=== PATIENT | male | born 1975 | race Caucasian/White ===

== ENCOUNTER 2021-05-09 23:04 | Emergency (ER) | payer SELFPAY ==
--- NOTE | ~2021-05-09 | XR_ITS ---
EXAMINATION: XR chest 1V portable DATE: 05/10/2021 00:43 INDICATION: Cough TECHNIQUE: frontal view of the chest was obtained. COMPARISON: None FINDINGS: The lungs are clear with no focal airspace opacities, pulmonary edema, pleural effusion or pneumothor ax. The cardiomediastinal silhouette is normal. Visualized bones and soft tissues are unremarkable. IMPRESSION: 1. No acute cardiopulmonary disease. Reviewed, dictated and finalized at location A.
[2021-05-09 23:06] VITALS: BP 138/99; PULSE 76; RESP 20; TEMP 36.6; O2SAT 99
--- NOTE | 2021-05-09 23:36 | ED.URI ---
HPI - URI/Sore Throat General Chief Complaint: Upper Respiratory Infection Stated Complaint: cough, n/v/d, cold sweats, no smell some taste Time Seen by Provider: 05/09/21 23:33 Source: patient Mode of arrival: ambulatory Limitations: no limitations History of Present Illness HPI Narrative: Patient is a 45-year-old male who presents for evaluation of fever, chills, cough, nausea and diarrhea. Patient states he has felt unwell over the past 72 hours. He reports he initially began with headache, myalgias, has progressed to cough with loss of sense of smell, nausea and vomiting throughout the course of yesterday and today. Patient reports subjective fever and chills. No rash. Patient received State vaccination in November. 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 Pt denies chest pain. No leg swelling or calf pain. No recent surgery or immobility. Related Data Allergies Allergy/AdvReac Type Severity Reaction Status Date / Time Opioids - Morphine Analogues Allergy Itching Verified 05/10/21 00:52 Penicillins Allergy Itching Verified 05/10/21 00:52 Review of Systems Review of Systems: CONSTITUTIONAL: Reports fever and chills EYES: Denies visual changes, redness, or discharge. ENT: Reports rhinorrhea and congestion CARDIOVASCULAR: Denies chest pain, palpitations, or edema. RESPIRATORY: Reports cough and mild shortness of breath GASTROINTESTINAL: Denies abdominal pain, reports nausea and vomiting and diarrhea. GENITOURINARY: Denies dysuria or hematuria. SKIN: Denies rash or itching. MUSCULOSKELETAL: Denies back pain, joint pain; reports myalgias NEUROLOGIC: Reports mild headache, denies numbness, or weakness. [facility] Social History Social History (Updated 05/10/21 @ 00:59 by Lizet Smyth MD) Smoking status: Current every day smoker Tobacco type: e-cigarettes/vaping Alcohol intake: never Substance use: current Substance use type: marijuana Gender identity (if verbalized by the patient): Male Exam Narrative: GENERAL: Awake, alert, conversant HEAD: Normocephalic, atraumatic. EYES: PERRLA and EOMI. ENT: Nares clear, no rhinorrhea or epistaxis. Mucous membranes moist. NECK: Supple. CHEST: No respiratory distress, breathing even and non labored HEART: Regular rate, sinus rhythm ABDOMEN:Non distended, non tender EXTREMITIES: Normal range of motion. No edema. SKIN: Warm, dry, no rash. NEURO:No focal deficits. Alert and oriented x3 Course Vital Signs Vital signs: Vital Signs Temperature 36.6 C 05/09/21 23:06 Pulse Rate 76 05/09/21 23:06 Respiratory Rate 20 05/09/21 23:06 Blood Pressure 138/99 H 05/09/21 23:06 Pulse Oximetry 99 05/09/21 23:06 Temperature 36.6 C 05/09/21 23:06 Pulse Rate 58 L 05/10/21 01:24 Respiratory Rate 18 05/10/21 01:24 Blood Pressure 148/98 H 05/10/21 00:08 Pulse Oximetry 100 05/10/21 01:24 MDM - URI/Sore Throat MDM Narrative Medical decision making narrative: Patient presenting for evaluation of upper respiratory infection type symptoms. No chest pain. His vital signs are quite stable, oxygen saturation 99% on room air. Noted to the cardia, no tachypnea. Patient is normotensive. IV access obtained and labs are drawn. Patient does not have any significant leukocytosis. No acute kidney injury or electrolyte abnormality. No urinary symptoms thus UA not obtained. Patient is not having any chest pain, troponin is not elevated. Not consistent with ACS. Patient was swabbed for Covid as his illness does seem quite consistent with this, chest x-ray is clear without focal infiltrates, no evidence of severe disease process at this point. Patient was given IV fluids, able to tolerate some oral intake at the time of reassessment feeling improved. Vital signs remained stable without new or changing symptoms. He was then discharged home in stable condition, advised to quarantine, advised to call the listed primary care physician for his
[2021-05-10 00:08] VITALS: BP 148/98; PULSE 64; O2SAT 100
[2021-05-10 00:22] LABS: Basophils Percent Auto 0.6 % (0.2-1.2); Eosinophils Absolute Auto 0.3 K/mm3 (0-0.3); Eosinophils Percent Auto 4.3 % (0-4.4); Hematocrit 41.4 % (42.0-52.0); Hemoglobin 13.5 g/dL (14.0-18.0); Immature Granulocyte Absolute 0.02 K/mm3 (0.00-0.031); Immature Granulocyte Percent A 0.3 % (0-0.5); Lymphocytes Absolute Auto 2.11 K/mm3 (0.9-3.2); Lymphocytes Percent Auto 29.4 % (18.3-44.2); Mean Corpuscular HGB Conc 32.6 g/dl (32-36); Mean Corpuscular Hemoglobin 31.8 pg (26-34); Mean Corpuscular Volume 97.4 fl (80-100); Mean Platelet Volume 10.1 fl (7.4-10.4); Monocytes Absolute Auto 1.2 K/mm3 (0.1-0.6); Monocytes Percent Auto 16.9 % (2.6-8.5); Neutrophils Absolute Auto 3.5 K/mm3 (1.3-6.7); Neutrophils Percent Auto 48.5 % (45.5-73.1); Platelet Count Result 206 k/mm3 (150-375); Red Blood Count 4.25 M/mm3 (4.6-6.20); Red Cell Distribution Width 12.5 % (11.5-14.5); White Blood Count 7.2 K/mm3 (4.5-10.0)
--- NOTE | 2021-05-10 00:24 | ECG_ITS ---
Measurements Intervals [place] Rate: 54 P: -1 FL: 147 QRS: 32 QRSD: 103 T: 29 QT: 406 QTc: 386 Interpretive Statements SINUS BRADYCARDIA BORDERLINE ECG Electronically Signed On 05-10-2021 6:27:36 CDT by Jude Ball D.O.
[2021-05-10 00:33] LABS: Anion Gap 7 mmol/L (8-16); Blood Urea Nitrogen 4 mg/dL (9-20); Calcium 9.1 mg/dL (8.4-10.2); Carbon Dioxide 26 mmol/L (22-30); Chloride 109 mmol/L (98-107); Estimated CRCL calculation 87 ml/min; Estimated Glomerular Filt Rate > 60; Glucose 103 mg/dL (65-110); Potassium 3.8 mmol/L (3.4-5.0); Sodium 142 mmol/L (137-145)
[2021-05-10] MEDS: IBUPROFEN 400 MG TABLET PO (00:43)
[2021-05-10] MEDS: ACETAMINOPHEN 500 MG TABLET 1000 MG PO (00:43)
[2021-05-10] MEDS: SODIUM CHLORIDE 0.9% IV 1,000 ML 999 ML IV CONT (00:55)
[2021-05-10] MEDS: ONDANSETRON INJ 4 MG/2 ML VIAL IV PUSH (00:55)
[2021-05-10 01:24] VITALS: PULSE 58; RESP 18; O2SAT 100
[2021-05-10 01:47] LABS: Troponin I < 0.012 ng/mL (0.000-0.034)
[2021-05-10 02:00] VITALS: BP 137/92; PULSE 66; RESP 18; O2SAT 100
[2021-05-10 19:52] LABS: SARS-CoV-2 RNA PCR Negative
== END 2021-05-10 02:04 | disposition home or self-care (01) ==
PROVIDERS: Emergency Provider Emergency Medicine
DX: J06.9 Acute upper respiratory infection, unspecified (principal); Z20.822 Contact with and (suspected) exposure to COVID-19; F17.290 Nicotine dependence, other tobacco product, uncomplicated; R00.1 Bradycardia, unspecified
CPT/HCPCS: 36415; 71045; 80048; 84484; 85025; 93005; 96361; 96374; 99284; A9270; C9803; J2405; J7030; U0003; U0005

== ENCOUNTER 2021-05-28 18:01 | Emergency (ER) | payer OTHER, SELFPAY ==
--- NOTE | ~2021-05-28 | CT_ITS ---
EXAMINATION: CT brain wo con EXAM DATE: 05/28/2021 20:14 INDICATION: Headache, head injury. Loss of vision, right superior scalp abrasion. TECHNIQUE: Spiral CT of the head was performed without contrast. Axial, coronal and sagittal images were reviewed. The dose-length product (DLP) for this examination was 605.33 mGy-cm. The exposure w as tailored according to patient size, and iterative reconstruction (ASIR) was used as additional dos e reduction technique. There is no prior study for comparison. FINDINGS: There is no acute intraparenchymal hemorrhage. No evidence of intraparenchymal brain mass lesion. No evidence of acute infarction. There is no mass effect or midline shift. The ventricles are normal in size. There are no extra-axial collections. There are no acute calvarial fractures. T he orbits are unremarkable. Soft tissue is unremarkable. The visualized sinuses and mastoid air alanna ls are well aerated. IMPRESSION: 1. No acute intracranial findings. Reviewed, dictated and finalized at location A.
[2021-05-28 18:19] VITALS: BP 154/65; PULSE 65; RESP 19; TEMP 37.3; O2SAT 100
[2021-05-28 19:40] VITALS: BP 137/86; PULSE 64; RESP 16; O2SAT 99
--- NOTE | 2021-05-28 19:55 | ED.HEATRA ---
HPI - Head Injury General Chief complaint: Trauma Stated complaint: head laceration Time Seen by Provider: 05/28/21 19:40 Source: patient Mode of arrival: ambulatory Limitations: no limitations History of Present Illness HPI Narrative: This is a 45 year old male that presents to the ER for head injury sustained just prior to arrival. Reports he was at work, he stood up and hit his head on a metal prep table. Reports his vision went black, but he did not fully lose consciousness. Reports he felt a lump on his head and noted some bleeding to the area. Reports since he has had a headache. He is up-to-date on tetanus. Denies current vision changes, vomiting, numbness or weakness. Related Data Allergies Allergy/AdvReac Type Severity Reaction Status Date / Time Opioids - Morphine Analogues Allergy Itching Verified 05/10/21 00:52 Penicillins Allergy Itching Verified 05/10/21 00:52 Review of Systems Review of Systems: CONSTITUTIONAL: Denies fever EYES: Denies visual changes GASTROINTESTINAL: Denies vomiting NEUROLOGIC: Reports headache. Denies numbness, or weakness. All systems reviewed & are unremarkable except as noted in HPI and below PMFSH Past Medical History Medical History (Updated 05/28/21 @ 21:06 by Glory Coronel PA-C) Hyperlipidemia Social History Social History (Updated 05/10/21 @ 00:59 by Lizet Smyth MD) Smoking status: Current every day smoker Tobacco type: e-cigarettes/vaping Alcohol intake: never Substance use: current Substance use type: marijuana Gender identity (if verbalized by the patient): Male Exam Narrative: GENERAL: Well-appearing, well-nourished, and in no acute distress. HEAD: Normocephalic, atraumatic. EYES: PERRLA and EOMI. ENT: Nares clear, no rhinorrhea or epistaxis. Mucous membranes moist. Oropharynx without tonsillar hypertrophy exudate or other lesions. Bilateral cerumen impaction NECK: Supple. No adenopathy or masses. No midline cervical spine tenderness CHEST: Clear to auscultation. No respiratory distress. No wheezes rales or rhonchi HEART: Regular rate and rhythm. No murmur heard. Normal peripheral pulses. EXTREMITIES: Normal range of motion. No edema. SKIN: Warm, dry, no rash. NEURO: No focal deficits. Alert and oriented x3. Cranial nerves II through XII grossly PSYCH: Normal mood and affect Course Vital Signs Vital signs: Vital Signs Temperature 99.1 F 05/28/21 18:19 Pulse Rate 65 05/28/21 18:19 Respiratory Rate 19 05/28/21 18:19 Blood Pressure 154/65 H 05/28/21 18:19 Pulse Oximetry 100 05/28/21 18:19 Temperature 99.1 F 05/28/21 18:19 Pulse Rate 64 05/28/21 19:40 Respiratory Rate 16 05/28/21 19:40 Blood Pressure 137/86 05/28/21 19:40 Pulse Oximetry 99 05/28/21 19:40 MDM - Head Injury MDM Narrative Medical decision making narrative: Patient presents to the ER for head injury sustained just prior to arrival. Patient had hit his head on a metal table. Reported vision going black, but denied full loss of consciousness. Reporting headache. He is neurologically intact. Vitals are stable. CT scan of the brain is without acute findings. He had a small hematoma to the scalp, that had some bleeding initially. No active bleeding on my exam, there are no lacerations noted. Patient was updated on case findings. Instructed on care of concussion. He is to follow-up with primary care doctor. He was given warnings to return to the ER Imaging Data Radiologist's impression: ITS Impressions Head CT 05/28/21 20:15 IMPRESSION: 1. No acute intracranial findings. Critical Care Time Critical Care Time Critical Care Time: No Discharge Plan Discharge Clinical Impression: Head injury Qualifiers: Encounter type: initial encounter Qualified Code(s): S09.90XA - Unspecified injury of head, initial encounter Patient Disposition: Home, Self-Care Condition: Stable Instructions: Concussion (ED) Add
[2021-05-28] MEDS: ACETAMINOPHEN 500 MG TABLET 1000 MG PO (21:09)
[2021-05-28 21:14] VITALS: BP 142/85; PULSE 60; RESP 16; O2SAT 98
== END 2021-05-28 21:15 | disposition home or self-care (01) ==
PROVIDERS: Emergency Provider Family Medicine
DX: S09.90XA Unspecified injury of head, initial encounter (principal); E78.5 Hyperlipidemia, unspecified; F17.290 Nicotine dependence, other tobacco product, uncomplicated; W22.8XXA Striking against or struck by other objects, initial encounter
CPT/HCPCS: 70450; 99284; A9270